=== PATIENT | male | born 2005 | race Caucasian/White ===

== ENCOUNTER 2024-02-22 15:36 | Emergency (ER) | payer BC ==
[~2024-02-22] VITALS: Ht 180.3 cm; Wt 81.7 kg
[2024-02-22 16:00] LABS: BILIRUBIN, URINE NEGATIVE (negative); BLOOD/HGB, URINE NEGATIVE (Negative); KETONE, URINE NEGATIVE (Negative); LEUK ESTERASE, URINE NEGATIVE (negative); NITRITE, URINE NEGATIVE (negative); PH, URINE 7.5 (5-7)
[2024-02-22 17:26] LABS: N. GONORRRHOEAE BY PCR NOT DETECTED (NOT DETECT)
[2024-02-22] MEDS ORDERED: ACYCLOVIR 400 MG TAB PO ONE (17:45)
[2024-02-22] MEDS ORDERED: FAMCICLOVIR250 MG PO (17:45)
[2024-02-22 17:49] VITALS: BP 136/86
== END 2024-02-22 17:49 | disposition home or self-care (01) ==
LOC: ED 15:36
PROVIDERS: Emergency Medicine
DX: A60.01 Herpesviral infection of penis (principal); Z88.8 Allergy status to other drugs, medicaments and biological substances
CPT/HCPCS: 81003; 99283; A9270